=== PATIENT | female | born 2000 | race Caucasian/White ===

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

== ENCOUNTER 2018-09-26 21:19 | Emergency (ER) | payer OTHER ==
[~2018-09-26] VITALS: Ht 167.6 cm; Wt 55.3 kg
[2018-09-26 22:43] VITALS: Ht 167.6 cm; Wt 55.3 kg
[2018-09-27 00:48] VITALS: BP 118/64
== END 2018-09-27 00:48 | disposition home or self-care (01) ==
LOC: ED 21:19
DX: R51 Headache (principal); F41.9 Anxiety disorder, unspecified
CPT/HCPCS: J1885; J7040; J8597; Q0163